=== PATIENT | male | born 1990 | race Asian ===

== ENCOUNTER 2016-10-17 17:05 | Emergency (ER) | payer OTHER ==
[~2016-10-17] VITALS: Ht 165.1 cm; Wt 55.0 kg
[2016-10-17] MEDS ORDERED: PERTUSS(ACELL),DIPH,TET VAC/PF 0.5 ML VIAL IM ONE (20:00)
[2016-10-17] MEDS ORDERED: IBUPROFEN 800 MG TABLET PO ONE (20:00)
[2016-10-17 20:53] VITALS: BP 126/75
== END 2016-10-17 20:56 | disposition home or self-care (01) ==
LOC: EMS 17:07
DX: S60.222A Contusion of left hand, initial encounter (principal); V00.131A Fall from skateboard, initial encounter; Y93.51 Activity, roller skating (inline) and skateboarding; Y92.89 Other specified places as the place of occurrence of the external cause; Y99.8 Other external cause status
CPT/HCPCS: 90471; 90715; 99284

== ENCOUNTER 2017-03-30 12:55 | Emergency (ER) | payer SELFPAY ==
[~2017-03-30] VITALS: Ht 167.6 cm; Wt 56.8 kg
[2017-03-30] MEDS ORDERED: METHOCARBAMOL 500 MG TABLET PO ONE (15:15)
[2017-03-30] MEDS ORDERED: KETOROLAC TROMETHAMINE 60 MG/2 ML VIAL IM ONE (15:15)
[2017-03-30 17:23] VITALS: BP 131/77
== END 2017-03-30 17:33 | disposition home or self-care (01) ==
LOC: EMS 12:56
DX: S16.1XXA Strain of muscle, fascia and tendon at neck level, initial encounter (principal); Y04.0XXA Assault by unarmed brawl or fight, initial encounter; Y93.89 Activity, other specified; Y92.89 Other specified places as the place of occurrence of the external cause; Y99.8 Other external cause status
CPT/HCPCS: 72050; 96372; 99284; J1885